=== PATIENT | female | born 1980 | race Caucasian/White ===

== ENCOUNTER 2018-05-26 09:52 | Outpatient (CLI) | payer BC ==
[2018-05-26] MEDS ORDERED: IOHEXOL 50 ML IV ONE (10:32)
== END 2018-05-26 20:38 | disposition home or self-care (01) ==
LOC: SRD 09:52
PROVIDERS: ATTEND Specialist
DX: N97.9 Female infertility, unspecified (principal)
CPT/HCPCS: 74740; C1751; Q9967

== ENCOUNTER 2019-04-21 01:28 | Emergency (ER) | payer BC ==
[~2019-04-21] VITALS: Ht 157.5 cm; Wt 49.0 kg
[2019-04-21 01:45] VITALS: BP_SYST 131
--- NOTE | 2019-04-21 01:48 | NUR ---
Patient to ER bed 02 for evaluation. Side rails up.
--- NOTE | 2019-04-21 01:59 | NUR ---
Dr. Cope bedside for pt eval
--- NOTE | 2019-04-21 02:00 | NUR ---
PT BIB FAMILY TO ED secondary to complaints of a fever that started 2 hours ago. She also has a sore throat and cough. She has not been exposed to anybody that has traveled into endemic areas of the coronavirus. She has not been to the any of the endemic areas of the coronavirus. She is taken 1 pill of azithromycin without improvement of her symptoms
--- NOTE | 2019-04-21 03:02 | NUR ---
Patient given written and verbal discharge instructions and verbalizes understanding. ER MD Cope discussed with patient the results and treatment provided. Patient in stable condition. ID arm band removed. Rx of Promethazine, Tamiflu given. Patient educated on pain management and to follow up with PMD. Pain Scale 0. Opportunity for questions provided and answered. Medication side effect fact sheet provided.
[2019-04-21 03:03] VITALS: BP_SYST 124
== END 2019-04-21 03:02 | disposition home or self-care (01) ==
LOC: SED 01:28
DX: J11.1 Influenza due to unidentified influenza virus with other respiratory manifestations (principal); R03.0 Elevated blood-pressure reading, without diagnosis of hypertension; J45.909 Unspecified asthma, uncomplicated
CPT/HCPCS: 36415; 86710; 99283